=== PATIENT | female | born 1945 | race Caucasian/White ===

== ENCOUNTER 2016-07-23 15:02 | Emergency (ER) | payer BC ==
[2016-07-23] MEDS ORDERED: ONDANSETRON ODT 4 MG TAB ONE (17:27)
[2016-07-23] MEDS ORDERED: DILAUDID 1 MG/ML AMP ONE (17:28)
== END 2016-07-23 18:10 | disposition home or self-care (01) ==
LOC: ER 16:03
DX: S70.01XA Contusion of right hip, initial encounter (principal); W01.0XXA Fall on same level from slipping, tripping and stumbling without subsequent striking against object, initial encounter; D59.9 Acquired hemolytic anemia, unspecified
CPT/HCPCS: 36415; 71010; 80053; 85025; 85610; 93005; 96372